=== PATIENT | male | born 1955 | race Caucasian/White ===

== ENCOUNTER 2018-11-04 07:31 | Day surgery (SDC) | payer OTHER ==
[~2018-11-04 07:31] MED LIST: Lactated Ringers 1,000 ML IV SCH
[2018-11-04] MEDS ORDERED: Labetalol 20 MG/4 ML Syringe IVPUSH ONE (07:32)
[2018-11-04] MEDS ORDERED: Midazolam 1 MG/ML 2 ML SDV IV ONE (07:32)
[2018-11-04] MEDS ORDERED: Propofol 200 MG/20 ML SDV IV ONE (07:32)
--- NOTE | 2018-11-04 09:11 | PCM.HP ---
H&P History of Present Illness - General Date of Service: 11/04/18 Admit Problem/Dx: Admission Diagnosis/Problem Admission Diagnosis/Problem Colonoscopy - History of Present Illness Initial Comments - Free Text/Narative: 62 yo wm who presents for a c scope. No complaints. last scope 10 yrs ago. - Related Data Allergies/Adverse Reactions: Allergies Allergy/AdvReac Type Severity Reaction Status Date / Time No Known Allergies Allergy Verified 11/04/18 08:31 Home Medications: Home Meds Aspirin [Ecotrin] 81 mg PO DAILY 09/12/18 [History] Clopidogrel Bisulfate [Clopidogrel] 75 mg PO DAILY 09/12/18 [History] Lisinopril 5 mg PO DAILY 09/12/18 [History] Metoprolol Succinate [Toprol XL] 25 mg PO DAILY 09/12/18 [History] Pantoprazole 20 mg PO DAILY 09/12/18 [History] Simvastatin [Zocor] 40 mg PO DAILY 09/12/18 [History] Ciprofloxacin HCl [Cipro] 500 mg PO BID #20 tablet 09/13/18 [Rx] metroNIDAZOLE [Flagyl] 500 mg PO Q8H #30 tab 09/13/18 [Rx] Multivitamin [Multi-Vitamin Daily] 1 tab PO DAILY 11/03/18 [History] Nitroglycerin 1 tab PO ASDIRECTED PRN MDD 3 DOSES 11/03/18 [History] Tadalafil [Cialis] 5 mg PO DAILY 11/03/18 [History] Past Medical History HEENT History: Reports: Impaired Vision, Other (See Below) Other HEENT History: IMPACTED CERUMEN, HYPERTROPHY OF NASAL TURBINATES Cardiovascular History: Reports: CAD, Cardiomyopathy, High Cholesterol, Hypertension, [place], Stents Gastrointestinal History: Reports: GERD, Other (See Below) Other Gastrointestinal History: HX DIVERTICULITIS IN SEP 2018 Musculoskeletal History: Reports: Gout Other Dermatologic History: DERMATITIS, [id number] - Past Surgical History Cardiovascular Surgical History: Reports: Coronary Artery Stent Social & Family History - Tobacco Use Smoking Status *Q: Never Smoker - Caffeine Use Caffeine Use: Reports: Coffee - Recreational Drug Use Recreational Drug Use: No Drug Use in Last 12 Months: No H&P Review of Systems - Review of Systems: Review Of Systems: See Below General: Reports: No Symptoms Pulmonary: Reports: No Symptoms Cardiovascular: Reports: No Symptoms Gastrointestinal: Reports: No Symptoms Exam - Exam Exam: See Below - Vital Signs Vital Signs: Last Vital Signs Temp 98.4 F 11/04/18 08:00 Pulse 63 11/04/18 08:00 Resp 16 11/04/18 08:00 BP 146/91 H 11/04/18 08:00 Pulse Ox 95 11/04/18 08:00 - Exam General: Alert, Oriented Lungs: Clear to Auscultation, Normal Respiratory Effort Cardiovascular: Regular Rate, Regular Rhythm GI/Abdominal Exam: Normal Bowel Sounds, Soft, Non-Tender Back Exam: Normal Inspection - Problem List (1) Colon cancer screening SNOMED Code(s): 988339164, [id number] ICD Code: Z12.11 - ENCOUNTER FOR SCREENING FOR MALIGNANT NEOPLASM OF COLON Status: Acute Current Visit: Yes Problem List Initiated/Reviewed/Updated: Yes Orders Last 24hrs: Active Orders 24 hr Category Date Time Status Patient Status [ADT] Routine ADT 11/04/18 07:30 Ordered Patient to Empty Bladder [RC] ASDIRECTED Care 11/04/18 07:30 Active Verify Patient Consent Obtain [RC] ASDIRECTED Care 11/04/18 07:30 Active Nothing Per Oral Diet [DIET] Diet 11/04/18 Breakfast Ordered Lactated Ringers [Ringers, Lactated] 1,000 ml Med 11/04/18 07:30 Active IV ASDIRECTED Peripheral IV Insertion Adult [OM.PC] Routine Oth 11/04/18 07:30 Ordered Resuscitation Status Routine Resus Stat 11/03/18 11:22 Ordered Medication Orders Lactated Ringer's (Ringers, Lactated) 1,000 mls @ 125 mls/hr IV ASDIRECTED [place] Assessment/Plan Comment:: for c scope procedure and risks explained to the pt. Expressed understanding ask us to procee.
[2018-11-04] MEDS ORDERED: Simethicone Drops 40 MG/0.6 ML 30 ML Bottle ONE (09:20)
--- NOTE | 2018-11-04 09:39 | PCM.OPNOTE ---
- General Post-Op/Procedure Note Date of Surgery/Procedure: 11/04/18 Operative Procedure(s): c scope with biopsy Findings: descending colon polyp sigmoid diverticulosis Pre Op Diagnosis: screening Post-Op Diagnosis: descending colon polyp. sigmoid diverticulosis Anesthesia Technique: LOGAN Primary Surgeon: Zac Samuels Anesthesia Provider: Barbara Romo Pathology: descending colon polyp Complications: None Condition: Good Free Text/Narrative:: see dictation
--- NOTE | 2018-11-04 13:08 | OR ---
DATE OF OPERATION: 11/04/2018 SURGEON: Zac Samuels MD PROCEDURE PERFORMED: Colonoscopy with cold forceps biopsy. PREOPERATIVE DIAGNOSIS: Need for screening C-scope. POSTOPERATIVE DIAGNOSES: Descending colon polyp, diverticulosis. INDICATIONS FOR PROCEDURE: This is a 62-year-old white male who presents for his 10-year followup. He was without complaints, was offered and accepted the same. DESCRIPTION OF OPERATION: After an excellent IV sedation was administered, digital rectal exam was performed. No marked abnormality was noted. The flexible colonoscope was inserted and advanced to the cecum without difficulty. Prep was excellent. The following findings were noted. Ascending colon, unremarkable. Transverse colon, unremarkable. Descending colon, a small polyp, biopsied with cold biopsy forceps, sent for permanent. Sigmoid, mild diverticulosis. Rectum and anus, unremarkable. The patient was taken to recovery in good condition. Results by letter. /[id number] /MODL
== END 2018-11-04 10:43 | disposition home or self-care (01) ==
LOC: FB.SDS 07:31
PROVIDERS: ATTEND Surgery
DX: Z12.11 Encounter for screening for malignant neoplasm of colon (principal); K57.30 Diverticulosis of large intestine without perforation or abscess without bleeding; D12.4 Benign neoplasm of descending colon; I25.10 Atherosclerotic heart disease of native coronary artery without angina pectoris; I42.9 Cardiomyopathy, unspecified; E78.00 Pure hypercholesterolemia, unspecified; I25.2 Old myocardial infarction; K21.9 Gastro-esophageal reflux disease without esophagitis; M10.9 Gout, unspecified; Z95.5 Presence of coronary angioplasty implant and graft; Z79.82 Long term (current) use of aspirin; Z79.02 Long term (current) use of antithrombotics/antiplatelets; Z79.2 Long term (current) use of antibiotics
CPT/HCPCS: 45380; 88305; A9270; J2250; J2704; J3490; J7120

== ENCOUNTER 2024-06-30 08:26 | Day surgery (SDC) | payer MEDICARE, OTHER ==
[2024-06-30] MEDS ORDERED: Midazolam 1 MG/ML 2 ML SDV IV ONE (08:27)
[2024-06-30] MEDS ORDERED: Propofol 200 MG/20 ML SDV IV ONE (08:27)
[2024-06-30] MEDS ORDERED: Sodium Chloride 0.9% 10 ML Syringe FLUSH PRN (08:30)
[2024-06-30] MEDS: Lactated Ringers 1,000 ML IV SCH (09:17)
[2024-06-30] MEDS: Simethicone Drops 40 MG/0.6 ML 30 ML Bottle ONE (10:03)
== END 2024-06-30 11:15 | disposition home or self-care (01) ==
LOC: FB.SDS 08:26
PROVIDERS: ATTEND Surgery
DX: Z12.11 Encounter for screening for malignant neoplasm of colon (principal); D12.6 Benign neoplasm of colon, unspecified; I25.10 Atherosclerotic heart disease of native coronary artery without angina pectoris; E78.5 Hyperlipidemia, unspecified; I10 Essential (primary) hypertension; Z86.010 Personal history of colon polyps; Z79.899 Other long term (current) drug therapy
CPT/HCPCS: 00811; 45384; 45385; 88305; A9270; J2250; J2704; J7120

== ENCOUNTER 2025-03-10 10:07 | Emergency (ER) | payer MEDICARE, OTHER ==
[2025-03-10] MEDS: Aspirin 81 MG Tab.Chew PO ONE (10:22)
[2025-03-10 10:29] LABS: BASOPHILS PERCENT AUTO 0.5 % (0.3-3.8); EOSINOPHILS ABSOLUTE AUTO 0.1 x10-3/uL (0.0-0.6); EOSINOPHILS PERCENT AUTO 1.6 % (0.1-6.8); HEMATOCRIT 44.5 % (38.3-50.1); HEMOGLOBIN 15.2 g/dL (12.9-17.7); LYMPHOCYTES ABSOLUTE AUTO 2.2 x10-3/uL (0.5-4.5); LYMPHOCYTES PERCENT AUTO 36.9 % (15.8-45.3); MEAN CORPUSCULAR HEMOGLOBIN 31.4 pg (27.0-33.3); MEAN CORPUSCULAR HGB CONC 34.1 g/dL (28.7-35.3); MEAN CORPUSCULAR VOLUME 92.1 fL (80.8-98.7); MEAN PLATELET VOLUME 7.6 fL (6.7-11.0); MONOCYTES ABSOLUTE AUTO 0.4 x10-3/uL (0.0-1.2); MONOCYTES PERCENT AUTO 7.1 % (5.5-15.2); NEUTROPHILS ABSOLUTE AUTO 3.3 x10-3/uL (1.7-6.9); NEUTROPHILS PERCENT AUTO 53.9 % (40.3-71.8); PLATELET COUNT,PLT 207 x10(3)uL (117-477); RED BLOOD CELL COUNT 4.83 x10(6)uL (3.90-5.90); RED CELL DISTRIBUTION WIDTH 13.2 % (12.4-15.0); WHITE BLOOD CELL COUNT,WBC 6.1 x10-3/uL (3.2-10.1)
[2025-03-10 10:31] LABS: BLOOD UREA NITROGEN,BUN 13 mg/dL (7-18); BUN/CREATININE RATIO 11.8 (9-20); CALCIUM 8.9 mg/dL (8.6-10.2); CARBON DIOXIDE,CO2 27 mmol/L (21-32); CHLORIDE,CL 104 mmol/L (100-110); CREATININE 1.1 mg/dL (0.70-1.30); EST CRCL DRUG DOSING (CG) 69.41 mL/min; ESTIMATED GFR 74 mL/min (>60); GLUCOSE RANDOM 119 mg/dL (80-116); POTASSIUM,K 4.1 mmol/L (3.5-5.3); SODIUM,NA 136 mmol/L (135-145)
[2025-03-10 10:38] LABS: ALANINE AMINOTRANSFERASE,ALT 41 U/L (12-36); ALBUMIN 3.6 g/dL (3.2-4.6); ALKALINE PHOSPHATASE 74 IU/L (56-112); ASPARTATE AMNIOTRANSFERASE,AST 23 IU/L (5-25); BILIRUBIN TOTAL 0.9 mg/dL (0.1-1.3); PROTEIN TOTAL,TP 7.3 g/dL (6.0-8.0)
[2025-03-10] MEDS: Ondansetron 4 MG/2 ML SDV IVPUSH ONE (10:42)
[2025-03-10] MEDS: Sodium Chloride 0.9% 1,000 ML IV ONE (10:43)
== END 2025-03-10 13:05 | disposition home or self-care (01) ==
LOC: FB.ED 10:07
DX: R55 Syncope and collapse (principal); R00.1 Bradycardia, unspecified; I10 Essential (primary) hypertension; I25.10 Atherosclerotic heart disease of native coronary artery without angina pectoris; E78.00 Pure hypercholesterolemia, unspecified; K21.9 Gastro-esophageal reflux disease without esophagitis; Z79.899 Other long term (current) drug therapy; Z79.82 Long term (current) use of aspirin
CPT/HCPCS: 36415; 70450; 71045; 80053; 84484; 85025; 93005; 93010; 96361; 96374; 99283; 99285; A9270; J2405; J7030